=== PATIENT | male | born 1980 | race Caucasian/White ===

== ENCOUNTER 2018-02-05 09:36 | Inpatient (IN) | payer OTHER ==
[~2018-02-05] VITALS: Ht 167.6 cm; Wt 60.4 kg
[2018-02-05 10:09] LABS: ABSOLUTE BASOPHIL COUNT 0 /CUMM (0.0-0.2); ABSOLUTE EOSINOPHIL COUNT 0.1 /CUMM (0.0-0.7); ABSOLUTE GRANULOCYTE CT 2.6 /CUMM (1.4-6.5); ABSOLUTE LYMPH COUNT 1.1 /CUMM (1.2-3.4); ABSOLUTE MONOCYTE COUNT 0.5 /CUMM (0.10-0.60); BASOPHIL % 0.3 % (0.0-2.0); EOSINOPHIL % 3.3 % (0-5); GRANULOCYTE % 60.2 % (42.2-75.2); HEMATOCRIT 42.6 % (42-52); MEAN CORPUSCULAR HGB 31.8 PG (27.0-31.0); MEAN CORPUSCULAR HGB CONC 33.3 G/DL (33.0-37.0); MEAN CORPUSCULAR VOLUME 95.4 FL (80.0-94.0); MEAN PLATELET VOLUME 8.6 FL (7.4-10.4); PLATELET COUNT 290 /CUMM (130-400); RBC DISTRIBUTION WIDTH 12.8 % (11.5-14.5); RED BLOOD CELL CT 4.46 /CUMM (4.70-6.10); WHITE BLOOD CELL COUNT 4.4 /CUMM (4.8-10.8)
[2018-02-05] MEDS ORDERED: GABAPENTIN300 M2 PO (10:23)
[2018-02-05] MEDS ORDERED: SUBOXONE 2 MG-1 EACH SL (10:24)
[2018-02-05] MEDS ORDERED: SERTRALINE HCL25 MG PO (10:24)
[2018-02-05] MEDS ORDERED: PROAIR HFA8.5 GM INH (10:25)
--- NOTE | 2018-02-05 10:28 | ED PSYCHIATRIC COMPLAINT ---
History of Present Illness General Chief Complaint: Psychiatric Related Complaint Stated Complaint: SENT BY DOCTOR FOR SI THOUGHTS Source: patient Exam Limitations: no limitations Vital Signs & Intake/Output Vital Signs & Intake/Output Vital Signs Date Time Temp Pulse Resp B/P B/P Pulse O2 O2 Flow FiO2 Mean Ox Delivery Rate 02/05 1805 98.8 67 15 122/58 100 Room Air Room Air 02/05 1649 97.6 56 18 143/73 100 Room Air 02/05 1502 97.7 50 15 123/71 96 Room Air Room Air 02/05 1123 98.5 56 20 140/82 99 Room Air 02/05 0947 98.8 66 15 147/70 98 Room Air Room Air Allergies Coded Allergies: No Known Allergies (02/05/18) Reconcile Medications Albuterol Sulfate (Proair Hfa) 90 MCG HFA.AER.AD 2 PUF INH Q4-6 PRN PRN SHORTNESS OF BREATH (Reported) Buprenorphine HCl/Naloxone HCl (Suboxone 2 MG-0.5 MG Sl Film) 2 MG-0.5 MG FILM 1 STR SL DAILY OPIOID DEPENDENCE (Reported) Gabapentin 300 MG CAPSULE 1 CAP PO TID MENTAL HEALTH (Reported) Sertraline HCl 25 MG TABLET 1 TAB PO DAILY MENTAL HEALTH (Reported) Triage Note: PT SENT TO ED BY DR. FLANNERY FOR DEPRESSION. PT HAS STARTED TAKING GABAPENTIN AND ZOLOFT YESTERDAY AND IT MADE PT FEEL WORSE. PT REPORTS, "THE MEDS MADE MY DEPRESSION WORSE AND GAVE ME SI THOUGHTS." PT IS ON SUBOXONE WELL. DENIES PLAN. Triage Nurses Notes Reviewed? yes HPI: Patient presents for evaluation of anxiety postemetic stress disorder and ADHD requiring medication adjustment. Patient states "I need to get level on my meds ". Patient has seen Dr. José of the [facility] and was asked to go to the emergency department for evaluation. He states he was just restarted on gabapentin 300 mg 3 times a day by Dr. José but denies any other medication use at this time despite a history of hypothyroidism. He denies alcohol or drug or tobacco use. Past History Travel History Traveled to [place] past 21 day No Medical History Any Pertinent Medical History? 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 No Review of Systems Review of Systems Constitutional: Reports: no symptoms. EENTM: Reports: no symptoms. Respiratory: Reports: no symptoms. Cardiovascular: Reports: no symptoms. GI: Reports: no symptoms. Genitourinary: Reports: no symptoms. Musculoskeletal: Reports: no symptoms. Skin: Reports: no symptoms. Neurological/Psychological: Reports: see HPI. Hematologic/Endocrine: Reports: no symptoms. Immunologic/Allergic: Reports: no symptoms. All Other Systems: Reviewed and Negative Physical Exam Physical Exam General Appearance: see below Neurological/Psychiatric: see below Comments: General: Alert, calm, cooperative Head: Normocephalic, atraumatic Eyes: Normal inspection, no nystagmus, EOMI Ears: Normal inspection Nose: Normal inspection Throat: Moist mucosa Neck: Supple, no goiter Heart: Regular rate and rhythm, no murmurs rubs or gallops Lungs: Clear to auscultation bilaterally with good air entry Abdomen: Soft nontender nondistended, normal bowel sounds Chest: Nontender Extremities: Normal range of motion grossly, mild tremors present, no cyanosis clubbing or edema of the upper extremities Neurologic: cranial nerves II through XII grossly intact, speech clear, gait normal Psychiatric: No apparent delusions or hallucinations, no thought blocking, increased psycho kinetic energy, mildly pressured speech SAD PERSONS Done? DEFERRED TO CRISIS Progress Differential Diagnosis: depression, anxiety, PTSD, ADHD, hypothyroidism, undermedication Plan of Care: Orders Procedure Date/time Status Regular Diet 02/05 L Active Admit to inpatient psych 02/05 1809 Active Add-on Test (ER Only) 02/05 1027 Active ED CRISIS PSYCH CONSULT 02/05 1021 Active TSH REFLEX 02/05 1000 Complete Continuous Observation Monitor 02/05 0951 Active URINE DRUG SCREEN FOR ER ONLY 02/05 0939 Complete ETHANOL 02/05 0939 Complete COMPREHENSIVE METABOLIC PANEL 02/05 0939 Complete CBC WITHOUT DIFFERENTIAL 02/05 0939 Complete Current Medications Sig/Trudi Start time Last Medication Dose Stop Time Status Admin Diazepam 10 MG ONCE ONE 02/05 1815 UNVr (Valium) 02/05 1816 Laboratory Tests 02/05/18 1132: Urine Opiates Screen < 100, Methadone Screen < 40, Barbiturate Screen < 60, Ur Phencyclidine Scrn < 6.00, Amphetamines Screen < 100, U Benzodiazepines Scrn < 85, Urine Cocaine Screen < 50, Urine Cannabis Screen < 5.00 02/05/18 1000: Anion Gap 12, Estimated GFR > 60, BUN/Creatinine Ratio 10.0, Glucose 90, Calcium 9.5, Total Bilirubin 0.5, AST 27, ALT 44, Alkaline Phosphatase 58, Total Protein 7.0, Albumin 4.3, Globulin 2.7, Albumin/Globulin Ratio 1.6, TSH &T3 &Free T4 Intrp 1.700, CBC w Diff NO MAN DIFF REQ, RBC 4.46 L, MCV 95.4 H, MCH 31.8 H, MCHC 33.3, RDW 12.8, MPV 8.6, Gran % 60.2, Lymphocytes % 24.8, Monocytes % 11.4 H, Eosinophils % 3.3, Basophils % 0.3, Absolute Granulocytes 2.6, Absolute Lymphocytes 1.1 L, Absolute Monocytes 0.5, Absolute Eosinophils 0.1, Absolute Basophils 0, Serum Alcohol < 10.0 Departure Departure Disposition: STILL A PATIENT Condition: Stable Clinical Impression Primary Impression: Bipolar disorder with psychotic features Referrals: Patient Has No Primary Care Dr (PCP/Family) Departure Forms: Customer Survey General Discharge Information Psych Admission Note Psychiatric Admission: I have seen and evaluated DILSHAD ADAME. I have also reviewed all the pertinent lab results and diagnostic results. DILSHAD ADAME will be admitted to our inpatient Psychiatric unit for treatment and care.
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
[2018-02-05 21:50] VITALS: BP 118/58
[2018-02-06 08:27] VITALS: BP 100/78
[2018-02-06 12:38] VITALS: BP 135/60
--- NOTE | 2018-02-06 14:14 | CPS PROVIDER INIT ASMT PSYCH ---
Psychiatric Admission Airport Attendant's Note Reviewed: Yes Patient Seen and Examined: Yes Identifying Information: 37 yo SWM with hx polysubstance dependence who was admitted on 02/05/18 on a voluntary basis, referred by ER. 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 Chief Complaint: Told wire web worker he needs his medications fixed. Reaction to Hospitalization: "I don't know, not too happy about it right now." Upset I won't resume Valium and Suboxone, which were started on 02/04/[address] Robles at [facility]. Intends to submit a 3-day paper. History of Present Illness Onset of Illness: Chronic. Admitted to [facility] in 2002, discharged on Zyprexa, Remeron and Seroquel. Circumstances Leading to Admission: Per crisis, appeared tangential and paranoid. Problem(s) Justifying Need for Admission: Thought disorder/paranoia. Other HPI: Reports he is here to get on his medication. Reports he is suffering from depression. [facility]. Claims he was there for false arrest. Upset that the police discarded his bookbag and "ruined my life." Reports that the bag contained his "health dedication," transcripts for college and lingerie for himself and his girlfriend. Later said that his girlfriend years ago, perhaps from a drug overdose. History is generally vague and inconsistent. Past Psychiatric History Past Diagnosis(es)- if any: Polysubstance dependence and antisocial PD. Patient told wire web worker: PTSD Social Anxiety ADHD Depression Past Precipitating Factors- if any: Unknown. - Include inpatient and outpatient treatment Treatment History: Went to [facility] on 02/04/[address] Robles. Multiple admissions, including to [facility] in 2002, [place] and [place]. History of Suicide Attempts or Gestures Denied to me. licensed social worker documented Dr. Robles heard report from patient of a benzo OD, date unknown. Substance Abuse History: No tobacco in years. No alcohol. 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 It is unclear why the patient would need Suboxone now. Allergies: Coded Allergies: No Known Allergies (02/05/18) Home Med List: Gabapentin 300 mg b.i.d. Zoloft 25 mg daily (patient doesn't want) Suboxone 2/0.5 SL daily Albuterol PRN "Valium" per patient. - Include any medical condition(s) that may - impact the patient's recovery/remission Past Medical History: Asthma. 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 Suicides: Denied. Social History Living Situation: [facility]. Since then, "living place to place." Sounds to be homeless. Significant Relationships (family/friends): Mother lives in [place]. Father is . Vague about brothers and sisters. No children. Said girlfriend a few years ago "maybe drug overdose." Education: HS graduate. Vocation/Occupation: Unemployed. No income. Legal: Extensive criminal history. Healthly Behaviors Screening Tobacco Screening Tobacco Use from ED Docu: Quit >30 days ago - If tobacco counseling indicated - the following topics are required. - #1 Recognizing dangerous situations. - #2 Coping Skills. - #3 Basic information about quitting. Status of Tobacco Cessation Counseling: Not Applicable Cessation Med Status Not Applicable Alcohol Screening - ETOH screen POS if BAL >=80 or Audit-C>= M4/F3 Audit-C Score from Diag Assess: 1 Blood Alcohol Level: Laboratory Tests 02/05 1000 Toxicology Serum Alcohol (<10 MG/DL) < 10.0 Alcohol Use Screening Results: Neg per Audit C &/or BAL - If ETOH counseling indicated - the following topics are required. - #1 Express concern about the patient's - drinking at unhealthy levels, include informing - of national norms for moderate drinking: - men <= 14 drinks/week, max 4 drinks/occasion - women <= 7 drinks/week, max 3 drinks/occasion - #2 Providing feedback, including linking alcohol to - negative physical effects (liver injury, hypertension) - negative emotional effects (relationship problems and - depression) - negative occupational consequences (reduced work - performance) - #3 Advising the patient to abstain from alcohol or - to drink below national norms for moderate drinking - (as listed above). Status of ETOH Use Counseling: N/A B/C NO ETOH Use Metabolic Screening - Screen if on a Neuroleptic Medication - Metabolic screening should include: - Blood Pressure, BMI, Glucose or Hgb A1c, & a - Lipid profile from within the past 365 days. Metabolic Screening () Not Applicable, patient not on a neuroleptic. OR () Patient on a neuroleptic(s) . Enter below results for Hemoglobin A1C, and lipid panel if obtained during the last 365 days. BMI: 22.600 Blood Pressure: 135/60 Laboratory Results From [facility] (If applicable): [x] A1c and lipid panel ordered. Exam and Plan Mental Status Examination Ambulation Status: Ambulation is WNL. Appearance: Thin WM in t-shirt and sweatpants, bearded, sitting in a chair, eating fresh fruit. Attitude towards examiner: Irritable. Annoyed for not being given Valium and Suboxone. Psychomotor activity: There is no psychomotor agitatation/retardation. Behavior: Mildly menacing. Uses foul language. Quality of speech: Normal in volume, rate and tone. Affect: Irritable. Mood: "Sucks." Sad 10. Anxiety /10. Denied feeling hopeless, helpless, worthless or guilty. Suicidal Ideation: Denies active and passive SI. Homicidal Ideation: Feels "like putting a hollow point bullet" in 2 hooking machine operator' heads. States he won't do it. Hallucinations: Denies AH and VH. Paranoid/Delusional Material: Denies PI and magical ann. States he is determined to take down the government for how he has been treated. Plans to flavio the government. Difficulties with thought organization: Mildly disorganized. Insight: Limited. Judgment: Limited. Orientation: Ox3 except 02/05/18. Cognition: Grossly intact. Memory Function: Grossly intact. Estimate of intellectual functioning: Below average. Assets/Strengths Patient Identified Assets/Strengths: "I'm determined to take down the government, win, fill my bank account and move on with my life." Impression/Plan Impression and Plan: The patient is here in the context of [facility] from [facility] ago. He is probably homeless. He has an extensive hx of PSD and antisocial PD. - Include all active medical diagnosis that require tx DSM 5 Diagnosis(es): Unspecified depression. Hx polysubstance dependence. Antisocial personality disorder. - Initial Tx Plan for Active Psych & Medical Conditions Treatment Plan: The patient will be monitored on the unit for safety, psychosis and mood disorder. I suspect that his mental state is at or around baseline. Additional information is needed from collaterals, including mother. Although the patient received Valium and a prescription for Suboxone, I believe it is prudent to hold off on these medications. I have ordered gabapentin 300 mg tid. Patient does not want Zoloft. Reports Depakote "f*cked me up." States lithium didn't work. Reports he didn't like Tegretol. Refuses Risperdal. Major risks/benefits of Zyprexa were discussed with the patient, including risks of irreversible tardive dyskinesia and metabolic syndrome (with weight gain, diabetes, high cholesterol and hypertension). Patient was advised to avoid drugs and alcohol while on this medication. I ordered Zyprexa (Zydis) 5 mg qhs, which the patient may refuse. PRN medications are available for agitation. Patient indicated his intent to submit a 3-day paper. - Factors that would help patient function - in a less restrictive setting. Factors: Behavioral control.
--- NOTE | 2018-02-06 14:17 | History & Physical ---
General Information and HPI History of Present Illness: This young male is admitted to the hospital for increasing depression. He reports that he has been feeling very depressed since he is homeless and does not have any place to live. He reportedly was just released from group home and has multiple legal problems in the past. He denies any specific physical problems at this time. He denies any major medical illnesses in the past and claims he does not have any physician. He claims he was living in [facility] most of his life. He denies any major problems and his family and claims he is not employed and is not working at this time. He admits to smoking some cigarettes but denies any other drug abuse. He claims that there was some problem with his thyroid in the past but is not taking any medicine and does not remember who told him that Allergies/Medications Allergies: Coded Allergies: No Known Allergies (02/05/18) Home Med list Albuterol Sulfate (Proair Hfa) 90 MCG HFA.AER.AD 2 PUF INH Q4-6 PRN PRN SHORTNESS OF BREATH (Reported) Buprenorphine HCl/Naloxone HCl (Suboxone 2 MG-0.5 MG Sl Film) 2 MG-0.5 MG FILM 1 STR SL DAILY OPIOID DEPENDENCE (Reported) Gabapentin 300 MG CAPSULE 1 CAP PO TID MENTAL HEALTH (Reported) Sertraline HCl 25 MG TABLET 1 TAB PO DAILY MENTAL HEALTH (Reported) Past History Travel History Traveled to [place] past 21 day No Medical History Neurological: seizure EENT: NONE Cardiovascular: NONE Respiratory: bronchitis Gastrointestinal: constipation Hepatic: NONE Renal: NONE Musculoskeletal: NONE Psychiatric: depression, ADHD SOCIAL ANXIETY GENERALIZED ANXIETY PTSD Endocrine: HYPOTHYROIDISM Blood Disorders: NONE Cancer(s): NONE 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 Other ETOH Use: denies use Illicit Drug Use: denies illicit drug use Review of Systems Review of Systems Constitutional: Denies: no symptoms. EENTM: Denies: no symptoms. Cardiovascular: Denies: no symptoms. Respiratory: Denies: no symptoms. GI: Denies: no symptoms. Genitourinary: Denies: no symptoms. Musculoskeletal: Denies: no symptoms. Skin: Denies: no symptoms. Neurological/Psychological: Reports: see HPI, anxiety, depressed. Hematologic/Endocrine: Denies: no symptoms. Exam & Diagnostic Data Last 24 Hrs of Vital Signs/I&O Vital Signs Date Time Temp Pulse Resp B/P B/P Pulse O2 O2 Flow FiO2 Mean Ox Delivery Rate 02/06 1238 76 135/60 02/06 0827 97.5 82 100/78 02/05 2150 98.7 56 118/58 02/05 2130 97.9 59 15 108/58 98 Room Air 02/05 1805 98.8 67 15 122/58 100 Room Air Room Air 02/05 1649 97.6 56 18 143/73 100 Room Air 02/05 1502 97.7 50 15 123/71 96 Room Air Room Air Intake & Output 02/06 1600 02/06 0800 02/06 0000 Intake Total Output Total Balance Patient 133 lb 140 lb Weight Physical Exam General Appearance Alert, Oriented X3, No Acute Distress, somewhat uncooperative and refuses to give many answers. Skin No Rashes, No Breakdown, No Significant Lesion HEENT Atraumatic, PERRLA, EOMI, Mucous Membr. moist/pink Neck Supple, No JVD, No thryomegaly Lymphatic Cervical nl Cardiovascular Regular Rate, Normal S1, Normal S2, No Murmurs, Gallops, Rubs Lungs Clear to Auscultation, Normal Air Movement Abdomen Normal Bowel Sounds, Soft, No Tenderness, No Hepatospenomegaly, No Masses Neurological Exam Findings: Normal Gait, Normal Speech, Strength at 5/5 X4 Ext, Normal Tone, Cranial Nerves 3-12 NL Cranial Nerves II through XII: Within normal limits Extremities No Clubbing, No Cyanosis, No Edema, No Tenderness/Swelling Assessment/Plan Assessment: This young male was admitted to the hospital complaining of depression. There is no significant medical problem at this time and is fairly stable from medical standpoint. His admission blood work including CBC electrolytes and liver functions are grossly normal and does not require any specific workup or treatment. As Ranked By This Provider Problem List: 1. Bipolar disorder with psychotic features Miscellaneous Miscellaneous Documentation Attending Case Discussed With: Branden VELASCO,Akshat Primary Care Physician: Patient Has No Primary Care Dr Patient sees these Specialists none Level of Patient Care: CARMEL Velásquez Attending MD Review Statement Attending Statement Attending MD Statement: examined this patient, reviewed EMR data (avail), discussed with nursing Attending Assessment/Plan: This young male is admitted for increasing depression and possibly bipolar type disorder. He is not on any medication at this time and from medical standpoint he's fairly stable without any acute medical problem. Does not require any workup or treatment from medical standpoint and will be seen only as needed.
--- NOTE | 2018-02-06 15:33 | SOCIAL WORKER PROG NOTE PSYCH ---
Social Work Progress Note Progress Note Rashel [place] [facility] [place]umbling profanities. Introduced myself. He was not very open to engaging in conversation other than to tell me how angry he was about coming in to the hospital and how he thought he was going to get back on his meds, but the doctor won't give him the meds he wants. He specifically is upset about not getting back on Valium. I told him I can't help him with that peice, but I can talk about other areas of his life which may be impacting him right now. He had mentioned being homeless. I asked if he would like help with that? He refused stating he was fine. I asked where he would be living if he were to leave here? He said he would go back out on the streets. I asked if he had heard of [facility] in [place]? He said no. I shared that it was [facility] with [facility]. He stated he wasn't going to a chcf. He continued to use profanity throughout our interaction and wouldn't engage in any form of help that was offered. I asked if he would like me to contact anyone? He said no. I asked if he planned to go back to see Dr. Robles at [facility]? He would just say "I'm done with this hospital." I asked if he had wanted to sign a 3 day paper to terminate voluntary status? He said he thinks he did that already. I check his chart and it was signed today.
--- NOTE | 2018-02-06 18:41 | SOCIAL WORKER PROG NOTE PSYCH ---
Social Work Progress Note Progress Note Pt presenting as agitated, irritable and not compliant this morning with attempt to engage to complete social hx.
[2018-02-06 20:07] VITALS: BP 112/62
[2018-02-07 08:20] VITALS: BP 109/65
[2018-02-07 12:01] VITALS: BP 96/54
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
[2018-02-07 15:40] VITALS: BP 117/52
[2018-02-07 20:01] VITALS: BP 121/55
[2018-02-08 08:24] VITALS: BP 113/60
[2018-02-08 12:09] VITALS: BP 117/67
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
[2018-02-08 15:34] VITALS: BP 132/63
[2018-02-08 19:09] VITALS: BP 129/49
[2018-02-09 08:34] VITALS: BP 125/64
[2018-02-09] MEDS ORDERED: ZYPREXA ZYDIS5 M1 PO (10:45)
[2018-02-09] MEDS ORDERED: TRAZODONE HCL50 M1 PO (10:45)
[2018-02-09] MEDS ORDERED: GABAPENTIN300 M2 PO (10:45)
--- NOTE | 2018-02-09 10:50 | Patient Discharge Instructions ---
Psych Discharge Inst General Discharge Information Reason for Admission: Wanted medications fixed. Appeared tangential and paranoid. Psy Discharge Primary Diag+ Unspecified depression Psy Discharge Secondary Diag+ Hx polysubstance depend. Antisocial personality do Summary Tests/Major Procedures Lab ALT 44 U/L 02/05/18 1000 AST 27 U/L 02/05/18 1000 BUN 10 mg/dL 02/05/18 1000 Carbon Dioxide 28 mmol/L 02/05/18 1000 Chloride 101 mmol/L 02/05/18 1000 Cholesterol 150 MG/DL 02/05/18 1000 Cholesterol/HDL Ratio 2 % 02/05/18 1000 Creatinine 1.0 mg/dL 02/05/18 1000 Estimated GFR > 60 ml/min 02/05/18 1000 Glucose 90 mg/dL 02/05/18 1000 HDL Cholesterol 66 mg/dL H 02/05/18 1000 Hemoglobin A1c 5.3 % 02/05/18 1000 LDL Cholesterol, Calc 72 mg/dL 02/05/18 1000 Potassium 4.4 mmol/L 02/05/18 1000 Sodium 141 mmol/L 02/05/18 1000 TSH &T3 &Free T4 Intrp 1.700 uIU/mL 02/05/18 1000 Triglycerides 61 mg/dL 02/05/18 1000 Absolute Lymphocytes 1.1 /CUMM L 02/05/18 1000 Hct 42.6 % 02/05/18 1000 Hgb 14.2 G/DL 02/05/18 1000 MCH 31.8 PG H 02/05/18 1000 MCV 95.4 FL H 02/05/18 1000 Monocytes % 11.4 % H 02/05/18 1000 Plt Count 290 /CUMM 02/05/18 1000 RBC 4.46 /CUMM L 02/05/18 1000 WBC 4.4 /CUMM L 02/05/18 1000 Buprenorphine & Metab POSITIVE 02/05/18 1132 Serum Alcohol < 10.0 MG/DL 02/05/18 1000 Studies Pending at DC: None. Patient Instructions Contact Information Your Psychiatrist on [facility] was Akshat Otero MD * If you are experiencing an emergency related to this hospitalization, please call [phone] to contact the treating psychiatrist or the psychiatrist-on- call. * To Request a copy of your medical records, please contact the Medical Records Department at [phone]. * To request results of studies pending at the time of discharge, please call [phone]. * Continue your Medications until directed to stop by your Healthcare provider. General Medication Information Please continue to take your new medications and your continued home medications , unless otherwise indicated on your discharge medication list, or unless directed by your MD or TELEPHONE SUPERVISOR to stop them. Special Instructions Diet Regular Activity Normal Other Inst/Recommendations Please see PCP about abnormal labs. Stay away from drugs and alcohol. - Tobacco Use Treatment Offered Post DC Medications Offered: Not Applicable Post DC Tobacco Treatment Plan: Not Applicable - EtOH/Drug Use D/O Treatment Offered Post DC Medications Offered: Med Not Indicated for D/O Post DC EtOH/SubAbuse TX Plan: Other SubAbuse/Dual Pgm ([facility]) Program Appt Date: 02/09/18 (A) Program Appt Time: 1047 ([facility]) Metabolic Screening () Not Applicable, patient not on a neuroleptic. OR () Patient on a neuroleptic(s) . Enter below results for Hemoglobin A1C, and lipid panel if obtained during the last 365 days. BMI: 22.600 Blood Pressure: 125/64 Laboratory Results From [facility] EHR (If applicable): Advance Directives Does the Patient have Medical Advance Directives No/Refused further info Does Pt have Psychiatric Advance Directives? No/Refused further info Does Patient have a Designated Surrogate Decision Maker: No Information About Psychiatric Advance Directives Provided? Refused Discharge Plan Post Hospital Treatment Plan: Patient plans to live with mother and follow up at [facility].
--- NOTE | 2018-02-09 11:01 | SOCIAL WORKER PROG NOTE PSYCH ---
See Addendum Social Work Progress Note Progress Note Covering today for Araseli Soto, COST ESTIMATOR. Met with Dr. Otero and nursing, in team meeting to discuss progress and discharge planning. Dr. Otero and I met with Rashel this morning. Rashel stated he is ready to discharge. He denied SI/HI, no AH/VH. He reports feeling 3/10 for anxiety and 3/10 for sadness. He is hopeful wants to continue with his disability, wants to take care of his health, and plans to reside with his Mother - Patricia Lane who resides at [address] [place] [address] . He wants to return to [facility] on [address] in [place] for medications. Patient was unable to remember which [facility] he attended to see Dr. Robles. He asked for location in [place]. Spoke with [facility] at [facility] and [facility] - they do not have Rashel as a patient (NILAS's in chart). Spoke with Marleny Cobos in the ED- she stated [place] location was where Dr. Robles was located. TC - [facility] - spoke with rhoda follow-up was already arranged - for Dr. Bhavik Robles at [address] [facility] on . at 1:20pm. TC from Vincent Beaulieu LPC at [facility] - he stated patient will have a therapist and has a volleyball assistant coach - Ayde Gomes . Therapist, is KWESI Nunez on 02/11/18 at 3pm. KWESI Carr phoned and confirmed appointments. Health summary faxed to [facility]. Had a phone conference with Ms. Lane and Rashel - she agreed to Rashel's discharge today. She confirmed that Rashel can stay with her - informed of discharge plan to return to [facility]. She agreed to brain picker Rashel today.
[2018-02-09 12:07] VITALS: BP 123/67
--- NOTE | 2018-02-09 17:26 | CP SOUTH PROGRESS NOTE PSYCH ---
Psych (Inpt) Progress Note Progress Note Include the following elements, when applicable: Involvement in the active treatment of the patient with behavioral observations of the patient and the patient's response to the treatment. Review of the ongoing treatment process in the context of the treatment plan. Indication of how multi-disciplinary staff members are carrying out the treatment plan. Plans for future interventions and recommendations for revision of the treatment plan. Liaison with other physicians/providers. Progress Note: Dr. Erica Crowley's notes reviewed. Case and treatment plan discussed in team meeting. Staff reports that the patient is denying suicidal ideation. Submitted a three-day paper and is eager to go. Patient apparently had a Social Security disability hearing scheduled for this morning and he called in. Described as disrespectful to weekend psychiatrist. Patient seen at 10:32 AM with Kirstie Reyes LCSW. Affect is calm and patient is a behavioral control. He was in group prior to meeting with us in office. States he feels great. He is interested in discharge. Wants to get on mental health disability. Wants to become stabilized and go to a health club and go to college. Wants to work on his health. Reports he felt agitated while on the phone earlier. Mood is good. Rates sad mood and anxiety both 3/10. Denies feeling hopeless, helpless, worthless or guilty. Denies active and passive suicidal ideation. Denies homicidal ideation. Denies auditory and visual hallucinations. Reports feeling that law enforcement and the government are out to harm him and he states that it is not delusional, it's a fact of life. Describes sleep as terrible. Reports appetite is always good. Describes energy as kind of sluggish. Feels ready and safe for discharge. Plans to live with mother after discharge. Plans to go to [facility] for follow-up. IMPRESSION: Condition improved. Okay for discharge today to mother's home with outpatient referral.
--- NOTE | 2018-02-09 17:32 | DISCHARGE SUMMARY REPORT-PSYCH ---
Visit Information Visit Dates/Diagnosis' Admission Date: 02/05/18 Discharge Date: 02/09/18 Reason for Admission: Wanted medications fixed. Appeared tangential and paranoid. Psy Discharge Primary Diag: Unspecified depression Psy Discharge Secondary Diag: Hx polysubstance depend. Antisocial personality do Hospital Course Significant Lab Findings: Lab ALT 44 U/L 02/05/18 1000 AST 27 U/L 02/05/18 1000 BUN 10 mg/dL 02/05/18 1000 Carbon Dioxide 28 mmol/L 02/05/18 1000 Chloride 101 mmol/L 02/05/18 1000 Cholesterol 150 MG/DL 02/05/18 1000 Cholesterol/HDL Ratio 2 % 02/05/18 1000 Creatinine 1.0 mg/dL 02/05/18 1000 Estimated GFR > 60 ml/min 02/05/18 1000 Glucose 90 mg/dL 02/05/18 1000 HDL Cholesterol 66 mg/dL H 02/05/18 1000 Hemoglobin A1c 5.3 % 02/05/18 1000 LDL Cholesterol, Calc 72 mg/dL 02/05/18 1000 Potassium 4.4 mmol/L 02/05/18 1000 Sodium 141 mmol/L 02/05/18 1000 TSH &T3 &Free T4 Intrp 1.700 uIU/mL 02/05/18 1000 Triglycerides 61 mg/dL 02/05/18 1000 Absolute Lymphocytes 1.1 /CUMM L 02/05/18 1000 Hct 42.6 % 02/05/18 1000 Hgb 14.2 G/DL 02/05/18 1000 MCH 31.8 PG H 02/05/18 1000 MCV 95.4 FL H 02/05/18 1000 Monocytes % 11.4 % H 02/05/18 1000 Plt Count 290 /CUMM 02/05/18 1000 RBC 4.46 /CUMM L 02/05/18 1000 WBC 4.4 /CUMM L 02/05/18 1000 Buprenorphine & Metab POSITIVE 02/05/18 1132 Serum Alcohol < 10.0 MG/DL 02/05/18 1000 Course Complications: None. Consultations: The patient was seen by Dr. Mccrary for admission H&P. Dr Mccrary noted: "Attending Assessment/Plan: This young male is admitted for increasing depression and possibly bipolar type disorder. He is not on any medication at this time and from medical standpoint he's fairly stable without any acute medical problem. Does not require any workup or treatment from medical standpoint and will be seen only as needed." Allergies: Coded Allergies: No Known Allergies (02/05/18) Hospital Course/TX Response: The patient was monitored on the unit for safety, psychosis and mood disorder. He participated in multi-modal treatments on the unit. He had hoped to have Suboxone and Valium continued, but they were not, as they were not indicated. Zydis 5 mg qhs was ordered off-label for agitation. Gabapentin was ordered at 300 mg t.i.d. The patient's agitation improved. Progress note from date of discharge, 02/09/18: Dr. Erica Crowley's notes reviewed. Case and treatment plan discussed in team meeting. Staff reports that the patient is denying suicidal ideation. Submitted a three-day paper and is eager to go. Patient apparently had a Social Security disability hearing scheduled for this morning and he called in. Described as disrespectful to weekend psychiatrist. Patient seen at 10:32 AM with Kirstie Reyes LCSW. Affect is calm and patient is a behavioral control. He was in group prior to meeting with us in office. States he feels great. He is interested in discharge. Wants to get on mental health disability. Wants to become stabilized and go to a health club and go to college. Wants to work on his health. Reports he felt agitated while on the phone earlier. Mood is good. Rates sad mood and anxiety both 3/10. Denies feeling hopeless, helpless, worthless or guilty. Denies active and passive suicidal ideation. Denies homicidal ideation. Denies auditory and visual hallucinations. Reports feeling that law enforcement and the government are out to harm him and he states that it is not delusional, it's a fact of life. Describes sleep as terrible. Reports appetite is always good. Describes energy as kind of sluggish. Feels ready and safe for discharge. Plans to live with mother after discharge. Plans to go to [facility] for follow-up. IMPRESSION: Condition improved. Okay for discharge today to mother's home with outpatient referral. Discharge HBIPS - Tobacco Use Treatment Offered Post DC Medications Offered: Not Applicable Post DC Tobacco Treatment Plan: Not Applicable - EtOH/Drug Use D/O Treatment Offered Post DC Medications Offered: Med Not Indicated for D/O Post DC EtOH/SubAbuse [place] Plan: Other SubAbuse/Dual Pgm ([facility]) Program Appt Date: 02/11/18 Program Appt Time: 1320 Metabolic Screening - Screen if on a Neuroleptic Medication - Metabolic screening should include: - Blood Pressure, BMI, Glucose or Hgb A1c, & a - Lipid profile from within the past 365 days. Metabolic Screening () Not Applicable, patient not on a neuroleptic. OR () Patient on a neuroleptic(s) . Enter below results for Hemoglobin A1C, and lipid panel if obtained during the last 365 days. BMI: 22.600 Blood Pressure: 123/67 Laboratory Results From [facility] (If applicable): [x] Lab Cholesterol 150 MG/DL 02/05/18 1000 Cholesterol/HDL Ratio 2 % 02/05/18 1000 HDL Cholesterol 66 mg/dL H 02/05/18 1000 Hemoglobin A1c 5.3 % 02/05/18 1000 LDL Cholesterol, Calc 72 mg/dL 02/05/18 1000 Triglycerides 61 mg/dL 02/05/18 1000 Discharge Instructions General Discharge Information Multiple Neuroleptics: ([x]) Not Applicable OR Document below three failed attempts at monotherapy, or a plan to taper to monotherapy, or augmentation of Clozapine. () Discharge Diet Regular Discharge Activity Normal DC Disposition: The patient is planning to live at his mother's home. Referrals Ordered Referrals Provider Referral 02/11/18 For Groups: [[facility] ] Dr. Bhavik Robles - Psychiatrist (medications and Suboxone) [address] Appointment - Dr. Travis Babcock. 02/11/18 at 1:20pm. KWESI Nunez - 02/11/18 at 3pm [address] Attend AA/NA meetings Connect with Ayde Gomes Client Representative at [facility] Prescriptions Stop taking the following medications: Sertraline HCl (Sertraline HCl) 25 MG TABLET ORAL DAILY Qty = 28 Buprenorphine HCl/Naloxone HCl (Suboxone 2 MG-0.5 MG Sl Film) 2 MG-0.5 MG FILM SUBLINGUAL DAILY Qty = 7 Continue taking these medications: Albuterol Sulfate (Proair Hfa) 90 MCG HFA.AER.AD 2 Puff Inhale through mouth EVERY 4-6 HOURS NEEDED as needed for SHORTNESS OF BREATH Qty = 9 Comments: not used in hospital Start taking the following new medications: Trazodone HCl (Trazodone HCl) 50 MG TABLET 50 Milligram ORAL AT BEDTIME as needed for INSOMNIA Qty = 14 No Refills Comments: Last Taken:02/08/18 Time:10pm Olanzapine (Zyprexa Zydis) 5 MG TAB.RAPDIS 5 Milligram ORAL AT BEDTIME Qty = 14 No Refills Comments: Last Taken:02/08/18 Time:9pm The following medications have been changed: Old: Gabapentin (Gabapentin) 300 MG CAPSULE 1 Capsule ORAL THREE TIMES DAILY Qty = 14 New: Gabapentin (Gabapentin) 300 MG CAPSULE 1 Capsule ORAL THREE TIMES DAILY Qty = 42 Comments: Last Taken:02/09/18 Time:12pm Other Inst/Recommendations Please see PCP about abnormal labs. Stay away from drugs and alcohol. Studies Pending at Discharge None. Copies To: Travis VELASCO,Bhavik
--- NOTE | 2018-02-09 18:42 | SOCIAL WORKER PROG NOTE PSYCH ---
Social Work Progress Note Faxed Referral(s) Referred To: [facility] Transition of Care Documents sent: Health Summary Faxed to: [facility] ATTN: DR. SALDIVAR Fax #: [phone] Faxed by: YMRA AMBROSE LCSW Date faxed: 02/09/18 Time Faxed: [phone]
--- NOTE | 2018-02-09 20:15 | SOCIAL WORKER PROG NOTE PSYCH ---
Social Work Progress Note Progress Note COMPLETED [facility] CONCURRENT FROM 02/08 TO TODAY. NEED TO COMPLETE [facility] DISCHARGE.
== END 2018-02-09 13:37 | DRG 754 ==
LOC: ERH 09:36 → ERHI 18:09 → CP SOUTH 18:09
PROVIDERS: Physician Assistant Medical
DX: F32.9 Major depressive disorder, single episode, unspecified (principal); F60.2 Antisocial personality disorder; F19.20 Other psychoactive substance dependence, uncomplicated
CPT/HCPCS: 80305; 80307; G0480; J0515; J1630; J3360; J3490